=== PATIENT | male | born 1990 | race Hispanic/Latino ===

== ENCOUNTER 2017-02-25 11:02 | Emergency (ER) | payer BC ==
[2017-02-25 11:08] VITALS: BP 126/82; PULSE 77; RESP 18; TEMP 98.5; O2SAT 99; BMI 26.6
--- NOTE | 2017-02-25 11:29 | ED PDOC ---
Arrival/HPI - General Chief Complaint: Suture/Staple Removal Time Seen by Provider: 02/25/17 11:03 Historian: Patient - History of Present Illness Narrative History of Present Illness (Text): 02/25/17 11:20 26 year old male, no significant pmh, nkda, here for the suture removal from the rt. hand x 7 days. Pt. had the sutured done at [place], told to have it remove today, no numbness or tingling, no fever or chills, wound healing well and dry, no other medical or psychological complaints. Past Medical History - Provider Review Nursing Documentation Reviewed: Yes - Psychiatric Hx Substance Use: No Family/Social History - Physician Review Nursing Documentation Reviewed: Yes Family/Social History: Unknown Family HX Smoking Status: Current Some Days Smoker Hx Alcohol Use: Yes Frequency of alcohol use: Socially Hx Substance Use: No Allergies/Home Meds Allergies/Adverse Reactions: Allergies No Known Allergies Allergy (Verified 02/25/17 11:07) Home Medications: Home Meds Medication Instructions Recorded Confirmed Naproxen [Naprosyn] 500 mg PO DAILY 02/25/17 02/25/17 Review of Systems - Review of Systems Constitutional: absent: Fatigue, Fevers Eyes: absent: Vision Changes ENT: absent: Hearing Changes Respiratory: absent: SOB, Cough Cardiovascular: absent: Chest Pain Gastrointestinal: absent: Abdominal Pain, Nausea, Vomiting Skin: Laceration. absent: Rash, Pruritis, Skin Lesions, Abscess, Ulcer Neurological: absent: Headache, Dizziness Physical Exam Vital Signs Reviewed: Yes Vital Signs Temp Pulse Resp BP Pulse Ox 02/25/17 11:07 98.5 F 77 18 126/82 99 Temperature: Afebrile Blood Pressure: Normal Pulse: Regular Respiratory Rate: Normal Appearance: Positive for: Well-Appearing, Non-Toxic, Comfortable Pain Distress: None Mental Status: Positive for: Alert and Oriented X 3 - Systems Exam Head: Present: Atraumatic, Normocephalic Pupils: Present: PERRL Extroacular Muscles: Present: EOMI Conjunctiva: Present: Normal Mouth: Present: Moist Mucous Membranes Neck: Present: Normal Range of Motion Respiratory/Chest: Present: Clear to Auscultation, Good Air Exchange. No: Respiratory Distress, Accessory Muscle Use Cardiovascular: Present: Regular Rate and Rhythm, Normal S1, S2. No: Murmurs Abdomen: Present: Normal Bowel Sounds. No: Tenderness, Distention, Peritoneal Signs Back: Present: Normal Inspection Upper Extremity: Present: Normal Inspection. No: Cyanosis, Edema Lower Extremity: Present: Normal Inspection. No: Edema Neurological: Present: GCS=15, Speech Normal, Motor Func Grossly Intact, Gait Normal, Memory Normal Skin: Present: Warm, Dry, Rashes (Rt. hand dorsum region near the 4th metacarpal with approx. 3-cm C-shaped suture wound with 6 sutures and mild skin gapping noted, mild erythematous, no oozing or discharge, FROM without limitation, sensation intact, motor 5/5. ), Normal Color Psychiatric: Present: Alert, Oriented x 3, Normal Insight, Normal Concentration Medical Decision Making ED Course and Treatment: 02/25/17 11:22 -Pt. is not on any antibiotic, wound show not completely healed and too early for removal, will put on keflex -Discharge home with keflex, clean with soap and water twice daily, wait for another 3-4 days for suture removal, avoid strenuous exercise or activity, follow up with your own pmd and hand specialist within 2 days, return to the ER for any new or worsening signs or symptoms. - PA / [employer] / Resident Statement / has reviewed & agrees with the documentation as recorded. Disposition/Present on Arrival - Present on Arrival Any Indicators Present on Arrival: No History of DVT/PE: No History of Uncontrolled Diabetes: No Urinary Catheter: No History of Decub. Ulcer: No History Surgical Site Infection Following: None - Disposition Have Diagnosis and Disposition been Completed?: Yes Diagnosis: Visit for wound check Disposition: HOME/ ROUTINE Disposition Time: 11:30 Patient Plan: Discharge Condition: GOOD Additional Instructions: -Discharge home with keflex, clean with soap and water twice daily, wait for another 3-4 days for suture removal, avoid strenuous exercise or activity, follow up with your own pmd and hand specialist within 2 days, return to the ER for any new or worsening signs or symptoms. Prescriptions: Cephalexin [Keflex] 500 mg PO QID #16 capsule Referrals: Colton Pierre MD [Staff Provider] - Follow up with primary Forms: [facility] (Cymro), WORK NOTE
== END 2017-02-25 11:51 | disposition home or self-care (01) ==
LOC: ED 11:02
DX: Z51.89 Encounter for other specified aftercare (principal)

== ENCOUNTER 2017-02-28 13:52 | Emergency (ER) | payer BC ==
[2017-02-28 13:54] VITALS: BMI 26.6
[2017-02-28 14:22] VITALS: RESP 16; TEMP 97.5
--- NOTE | 2017-02-28 14:26 | ED PDOC ---
Arrival/HPI - General Chief Complaint: Suture/Staple Removal Time Seen by Provider: 02/28/17 13:55 Historian: Patient - History of Present Illness Narrative History of Present Illness (Text): 02/28/17 14:22 26-year-old male presents today for suture removal to the right hand. Patient states that he cut himself while washing a glass in [place] 10 days ago. Patient states he has been keeping the wound clean and has been applying bacitracin twice daily and keeping the wound covered. Patient states he did not take the antibiotic that was recently prescribed to him. He denies numbness weakness or tingling in the extremity. Denies fevers or chills. No chest pain or shortness of breath. pt states he has been working a lot with her hand. No other complaints. Time/Duration: > week Past Medical History - Provider Review Nursing Documentation Reviewed: Yes - Travel History Have you recently traveled outside [place] w/in the past 3 mons?: No - Infectious Disease Hx of Infectious Diseases: None - Tetanus Immunization Tetanus Immunization: Up to Date - Psychiatric Hx Substance Use: No - Anesthesia Hx Anesthesia: No Family/Social History - Physician Review Nursing Documentation Reviewed: Yes Family/Social History: Unknown Family HX Smoking Status: Current Some Days Smoker Hx Alcohol Use: Yes Hx Substance Use: No Allergies/Home Meds Allergies/Adverse Reactions: Allergies No Known Allergies Allergy (Verified 02/25/17 11:07) Home Medications: Home Meds Medication Instructions Recorded Confirmed Naproxen [Naprosyn] 500 mg PO DAILY 02/25/17 02/28/17 Review of Systems - Review of Systems Constitutional: absent: Fatigue, Fevers Respiratory: absent: SOB, Cough Cardiovascular: absent: Chest Pain, Palpitations Gastrointestinal: absent: Abdominal Pain, Nausea, Vomiting Musculoskeletal: absent: Arthralgias, Back Pain, Neck Pain Skin: Laceration Neurological: absent: Headache, Dizziness Physical Exam Vital Signs Reviewed: Yes Vital Signs Temp Pulse Resp BP Pulse Ox 02/28/17 14:18 97.5 F L 72 16 122/88 98 Temperature: Afebrile Blood Pressure: Normal Pulse: Regular Respiratory Rate: Normal Appearance: Positive for: Well-Appearing, Non-Toxic, Comfortable Pain Distress: None Mental Status: Positive for: Alert and Oriented X 3 - Systems Exam Head: Present: Atraumatic Mouth: Present: Moist Mucous Membranes Neck: Present: Normal Range of Motion Respiratory/Chest: Present: Clear to Auscultation, Good Air Exchange. No: Respiratory Distress, Accessory Muscle Use Cardiovascular: Present: Regular Rate and Rhythm, Normal S1, S2. No: Murmurs Upper Extremity: Present: Normal ROM, NORMAL PULSES, Neurovascularly Intact, Capillary Refill < 2s, Other (right hand; there is a C shaped laceration to the dorsal aspect of the hand with [address] no purulent discharge. ). No : Tenderness, Swelling, Erythema, Deformity Neurological: Present: GCS=15 Skin: Present: Warm, Dry Psychiatric: Present: Alert, Oriented x 3 Medical Decision Making ED Course and Treatment: 02/28/17 14:27 Patient is nontoxic well-appearing in no distress. Vital signs are stable. 3 sutures removed from the right hand. [address] wound is macerated with partial wound dehiscence. Will keep the [address] and have the patient return in 2-3 days for suture removal. I advised the patient to keep the wound clean and dry, I have advised following up with a hand specialist/wound center/surgeon within the next 2 days. I have advised immediate return if symptoms worsen persist or if new symptoms develop. Patient states he was unable to afford the Keflex. We'll start the patient on Bactrim by mouth. Patient placed into a finger splint to limit the movement of the hand over the fourth and fifth metacarpals. I've advised the patient to avoid applying any antibiotic ointment to the area and keep the wound open to air to dry the wound. Patient verbalizes understanding of discharge instructions and need for immediate followup. Impression: Wound check, suture removal Keep the wound clean and dry use fingersplint bactrim; 1 tablet twice daily x 7 days. Follow up with primary care physician within the next 2 days Follow up with the hand specialist within the next 2 days. Follow up with the wound center within the next 2 days. Return in 2-3 days for wound check and suture removal. Return immediately if symptoms worsen persist or if new symptoms develop Disposition/Present on Arrival - Present on Arrival Any Indicators Present on Arrival: No History of DVT/PE: No History of Uncontrolled Diabetes: No Urinary Catheter: No History of Decub. Ulcer: No History Surgical Site Infection Following: None - Disposition Have Diagnosis and Disposition been Completed?: Yes Diagnosis: Encounter for wound re-check, Visit for suture removal Disposition: HOME/ ROUTINE Disposition Time: 14:31 Patient Plan: Discharge Patient Problems: Current Active Problems Problem Status Onset Encounter for wound re-check Acute Visit for suture removal Acute Condition: GOOD Additional Instructions: Keep the wound clean and dry use fingersplint bactrim; 1 tablet twice daily x 7 days. Follow up with primary care physician within the next 2 days Follow up with the hand specialist within the next 2 days. Follow up with the wound center within the next 2 days. Return in 2-3 days for wound check and suture removal. Return immediately if symptoms worsen persist or if new symptoms develop Prescriptions: Sulfamethoxazole/Trimethoprim [Bactrim DS 800 mg-160 mg] 1 tab PO BID #14 tab Referrals: Grabiel Campa MD [Staff Provider] - Follow up with primary Jersey Fenton MD [Medical Doctor] - Follow up with primary [facility] [place] [Outside] - Follow up with primary Forms: [employer] (Croatian)
[2017-02-28 15:02] VITALS: BP 126/85; PULSE 69; O2SAT 100
== END 2017-02-28 15:02 | disposition home or self-care (01) ==
LOC: ED 13:52
DX: Z48.02 Encounter for removal of sutures (principal); Z51.89 Encounter for other specified aftercare

== ENCOUNTER 2017-03-04 16:55 | Emergency (ER) | payer SELFPAY ==
[2017-03-04 16:56] VITALS: BMI 26.6
[2017-03-04 17:19] VITALS: BP 132/77; PULSE 69; RESP 18; TEMP 98.3; O2SAT 97
--- NOTE | 2017-03-04 17:26 | ED PDOC ---
Arrival/HPI - General Chief Complaint: Suture/Staple Removal Time Seen by Provider: 03/04/17 17:18 Historian: Patient - History of Present Illness Narrative History of Present Illness (Text): 03/04/17 17:47 26 yo M presents for wound check and suture removal to the R hand, states that the sutures were applied 14 days ago. He had some of the sutures removed a few days ago, then advised to return to have the rest removed. Denies any fever, chills, redness, swelling, decrease in ROM, numbness. Has no other complaints. Past Medical History - Provider Review Nursing Documentation Reviewed: Yes - Infectious Disease Hx of Infectious Diseases: None - Tetanus Immunization Tetanus Immunization: Up to Date - Psychiatric Hx Substance Use: No - Anesthesia Hx Anesthesia: No Family/Social History - Physician Review Nursing Documentation Reviewed: Yes Family/Social History: No Known Family HX Smoking Status: Current Some Days Smoker Hx Alcohol Use: Yes Hx Substance Use: No Allergies/Home Meds Allergies/Adverse Reactions: Allergies No Known Allergies Allergy (Verified 02/25/17 11:07) Home Medications: Home Meds Medication Instructions Recorded Confirmed Naproxen [Naprosyn] 500 mg PO DAILY 02/25/17 02/28/17 Review of Systems - Review of Systems Constitutional: Normal. absent: Fatigue, Weight Change, Fevers Musculoskeletal: Normal. absent: Arthralgias, Back Pain, Neck Pain Skin: Normal, Laceration. absent: Rash, Pruritis, Skin Lesions Physical Exam Vital Signs Reviewed: Yes Vital Signs Temp Pulse Resp BP Pulse Ox 03/04/17 17:09 98.3 F 69 18 132/77 97 Temperature: Afebrile Blood Pressure: Normal Pulse: Regular Respiratory Rate: Normal Appearance: Positive for: Well-Appearing, Non-Toxic, Comfortable Pain Distress: None Mental Status: Positive for: Alert and Oriented X 3 - Systems Exam Upper Extremity: Present: Normal Inspection, Normal ROM, NORMAL PULSES, Neurovascularly Intact, Temperature Abnormalties, Capillary Refill < 2s, Norm 2- Pt Discrimination. No: Edema, Tenderness, Swelling, Deformity Skin: Present: Warm, Dry, Normal Color, Other ((+) healing laceration to the dorsal aspect of the 5th MCP). No: Rashes Medical Decision Making ED Course and Treatment: 03/04/17 17:55 26 yo M presents for wound check and suture removal to the R hand, sutures were applied 14 days ago. On exam, pt's wound is healing well with no evidence of infection, sutures removed easily by PA. Advised on proper wound care. Otherwise instructed to follow up with primary care physician in 1-2 days without fail. Return to the emergency room at any time for any new or worsening symptoms. Patient states he fully agrees with and understands discharge instructions. States that he agrees with the plan and disposition. Verbalized and repeated discharge instructions and plan. I have given the patient opportunity to ask any additional questions. - PA / ENVIRONMENTAL PERMITTING SPECIALIST / Resident Statement MD/DO has reviewed & agrees with the documentation as recorded. Disposition/Present on Arrival - Present on Arrival Any Indicators Present on Arrival: No History of DVT/PE: No History of Uncontrolled Diabetes: No Urinary Catheter: No History of Decub. Ulcer: No History Surgical Site Infection Following: None - Disposition Have Diagnosis and Disposition been Completed?: Yes Diagnosis: Visit for wound check Disposition: HOME/ ROUTINE Disposition Time: 17:25 Patient Plan: Discharge Condition: STABLE Discharge Instructions (ExitCare): Acute Wound Care (ED) Print Language: MOZAMBICAN Additional Instructions: Thank you for letting us take care of you today. You were treated for wound check. The emergency medical care you received today was directed at your acute symptoms. Return to the Emergency Department if your symptoms worsen, do not improve, or if you have any other problems. Please contact your doctor in 2 days for re-evaluation and follow up. Bring any paperwork you were given at discharge with you along with any medications you are taking to your follow up visit. Our treatment cannot replace ongoing medical care by a primary care provider (PCP) outside of the emergency department. Thank you for allowing the [facility] team to be part of your care today. Referrals: PCP,NO [Primary Care Provider] - Follow up with primary [facility] [place] [Outside] - Follow up with primary Forms: [employer] (Northern Irish)
== END 2017-03-04 17:35 | disposition home or self-care (01) ==
LOC: ED 16:55
DX: Z51.89 Encounter for other specified aftercare (principal)

== ENCOUNTER 2017-05-01 13:25 | Emergency (ER) | payer OTHER ==
[2017-05-01 13:26] VITALS: BMI 26.6
[2017-05-01 13:56] VITALS: BP 138/91; PULSE 80; RESP 18; TEMP 98.6; O2SAT 98
--- NOTE | 2017-05-01 15:14 | ED PDOC ---
Arrival/HPI - General Chief Complaint: Dental Pain Time Seen by Provider: 05/01/17 15:11 Historian: Patient - History of Present Illness Narrative History of Present Illness (Text): 05/01/17 15:11 This 27-year-old male presents to the emergency department complaining of left posterior wisdom tooth pain 1 day. Patient stated he had the same symptoms last year but he was not able to follow up with his dentist. Patient denies sore throat, fever, chills swelling, skin rash, dysphasia, sob, cp, recent travel, sick contact, or abnormal gait. Time/Duration: Other (1 day) Quality: Aching Context: Home Past Medical History - Provider Review Nursing Documentation Reviewed: Yes - Infectious Disease Hx of Infectious Diseases: None - Tetanus Immunization Tetanus Immunization: Up to Date - Psychiatric Hx Psychophysiologic Disorder: No Hx Substance Use: No - Anesthesia Hx Anesthesia: No Family/Social History - Physician Review Nursing Documentation Reviewed: Yes Family/Social History: Other (Noncontributory) Smoking Status: Light Smoker < 10 Cigarettes Daily Hx Alcohol Use: Yes Frequency of alcohol use: Socially Hx Substance Use: No Allergies/Home Meds Allergies/Adverse Reactions: Allergies No Known Allergies Allergy (Verified 02/25/17 11:07) Review of Systems - Review of Systems Constitutional: Normal. absent: Fatigue, Weight Change, Fevers Eyes: Normal ENT: Other (Dental pain) Respiratory: Normal Cardiovascular: Normal Gastrointestinal: Normal Genitourinary Male: Normal Musculoskeletal: Normal Skin: Normal Neurological: Normal Endocrine: Normal Hemo/Lymphatic: Normal Psychiatric: Normal Physical Exam Vital Signs Temp Pulse Resp BP Pulse Ox 05/01/17 13:50 98.6 F 80 18 138/91 H 98 05/01/17 13:26 98.6 F 80 18 138/91 H 98 Temperature: Afebrile Blood Pressure: Normal Pulse: Regular Respiratory Rate: Normal Appearance: Positive for: Well-Appearing, Non-Toxic, Comfortable Pain Distress: None Mental Status: Positive for: Alert and Oriented X 3 - Systems Exam Head: Present: Atraumatic, Normocephalic Pupils: Present: PERRL Extroacular Muscles: Present: EOMI Conjunctiva: Present: Normal Ears: Present: Normal, NORMAL TM Mouth: Present: Moist Mucous Membranes, Normal Lips, Normal Tounge, Other (Left posterior lower molar is mild swollen, no abscesses, no facial swelling). No: Drooling, Trismus Pharnyx: Present: Normal. No: ERYTHEMA, EXUDATE, TONSILS ENLARGED Nose (External): Present: Atraumatic Nose (Internal): Present: Normal Inspection Neck: Present: Normal Range of Motion Respiratory/Chest: Present: Clear to Auscultation, Good Air Exchange. No: Respiratory Distress, Accessory Muscle Use Cardiovascular: Present: Regular Rate and Rhythm, Normal S1, S2. No: Murmurs Abdomen: Present: Normal Bowel Sounds. No: Tenderness, Distention, Peritoneal Signs Back: Present: Normal Inspection. No: CVA Tenderness Upper Extremity: Present: Normal Inspection, Normal ROM, NORMAL PULSES, Neurovascularly Intact, Capillary Refill < 2s. No: Cyanosis, Edema Lower Extremity: Present: Normal Inspection, NORMAL PULSES, Normal ROM, Neurovascularly Intact, Capillary Refill < 2 s. No: Edema, CALF TENDERNESS Neurological: Present: GCS=15, CN II-XII Intact, Speech Normal, Motor Func Grossly Intact, Normal Sensory Function, Normal Cerebellar Funct, Gait Normal Skin: Present: Warm, Dry, Normal Color. No: Rashes Lymphatic: No: Cervical Adenopathy Psychiatric: Present: Alert, Oriented x 3, Normal Insight, Normal Concentration Medical Decision Making ED Course and Treatment: 05/01/17 15:15 Patient prefers to take prescription medication and to be discharged home as soon as possible 05/01/17 15:19 Re-evaluation. Patient feels better. Discussed results and plan with patient who expresses understanding. All questions answered and there is agreement with the plan to discharge home with instructions. Patient stable for discharge. Return if symptoms persist or worsen Take medication with food. Re-evaluation Time: 15:15 Reassessment Condition: Re-examined, Improved Disposition/Present on Arrival - Present on Arrival Any Indicators Present on Arrival: No History of DVT/PE: No History of Uncontrolled Diabetes: No Urinary Catheter: No History of Decub. Ulcer: No History Surgical Site Infection Following: None - Disposition Have Diagnosis and Disposition been Completed?: Yes Diagnosis: Pain, dental Disposition: HOME/ ROUTINE Disposition Time: 15:15 Patient Plan: Discharge Patient Problems: Current Active Problems Problem Status Onset Pain, dental Acute Condition: GOOD Discharge Instructions (ExitCare): Toothache (ED) Additional Instructions: Call private dentist for follow-up visit in 1-2 days. Take medication as instructed. Return to emergency if symptoms worse Prescriptions: Amoxicillin [Amoxil 500 mg Cap] 500 mg PO TID #30 cap Chlorhexidine 0.12% [Peridex] 15 ml PO BID #1 bottle Naproxen 500 mg PO BID PRN #20 tab PRN Reason: Pain, Severe (8-10) Referrals: PCP,NO [Primary Care Provider] - Follow up with primary [facility] [Outside] - Follow up with primary [facility] [Outside] - Follow up with primary
== END 2017-05-01 15:26 | disposition home or self-care (01) ==
LOC: ED 13:25
DX: K08.89 Other specified disorders of teeth and supporting structures (principal)

== ENCOUNTER 2018-02-18 22:19 | Emergency (ER) | payer SELFPAY ==
[2018-02-18 22:19] VITALS: BMI 26.6
== END 2018-02-18 23:32 | disposition left against medical advice (07) ==
LOC: ED 22:19
DX: Z02.89 Encounter for other administrative examinations (principal); R10.9 Unspecified abdominal pain